=== PATIENT | male | born 1985 | race Two or more races ===

== ENCOUNTER 2021-03-06 14:56 | Emergency (ER) | payer SELFPAY ==
[~2021-03-06] VITALS: Ht 177.8 cm; Wt 82.0 kg
[2021-03-06 15:21] LABS: BASOPHILS % (AUTO) 1 % (0-1); EOSINOPHILS % (AUTO) 1 % (1-7); LYMPHOCYTES % (AUTO) 16 % (22-44); MEAN CORPUSCULAR HEMOGLOBIN 31.7 pg (27.5-34.5); MEAN CORPUSCULAR HGB CONC 34.4 g/dL (33.2-36.2); MEAN PLATELET VOLUME 7.5 fL (7.4-10.4); MONOCYTES % (AUTO) 7 % (2-9); NEUTROPHILS % (AUTO) 76 % (42-75); PLATELET COUNT 252 x10^3/uL (130-400); RED BLOOD COUNT 4.87 x10^6/uL (4.38-5.82); RED CELL DISTRIBUTION WIDTH 13.2 % (9.4-14.8)
[2021-03-06] MEDS ORDERED: KETOROLAC 30 MG/1 ML ONE (15:27)
--- NOTE | 2021-03-06 15:29 | NUR ---
PATIENT WALKED BACK FROM LOBBY WITH CHIEF C/O RIGHT SIDED ABD PAIN THAT STARTED THIS MORNING. DENIES PAIN WITH URINATION, DENIES N/V/D, NO FEVER. AMERICAN, VSS, FRIEND IN ROOM TO TRANSLATE. CALL LIGHT WITHIN REACH.
[2021-03-06] MEDS ORDERED: KETOROLAC 30 MG/1 ML IM ONE (15:30)
[2021-03-06 15:32] LABS: ALBUMIN 3.9 g/dL (3.4-5.0); ANION GAP 9 mmol/L (5-15); CALCIUM 8.4 mg/dL (8.5-10.1); CHLORIDE 100 mmol/L (98-107)
[2021-03-06 15:33] LABS: CREATININE 1.07 mg/dL (0.7-1.3); MD NO
--- NOTE | 2021-03-06 15:38 | NUR ---
PATIENT MEDICATED PER [facility], TO IMAGING.
--- NOTE | 2021-03-06 16:15 | NUR ---
URINE COLLECTED AND WALKED TO LAB.
--- NOTE | 2021-03-06 16:15 | NUR ---
ERMD AT BEDSIDE TO DISCUSS POC.
[2021-03-06 16:33] LABS: MICROSCOPIC NOT IND
[2021-03-06 16:43] VITALS: BP 136/73
--- NOTE | 2021-03-06 16:59 | NUR ---
Patient given discharge instructions and prescription and they have confirmed that they understand the instructions. Patient stable and ambulatory with steady gait from ED to private vehicle with family.
== END 2021-03-06 17:00 | disposition home or self-care (01) ==
LOC: ED 16:50
DX: N13.2 Hydronephrosis with renal and ureteral calculous obstruction (principal); R10.31 Right lower quadrant pain; R19.7 Diarrhea, unspecified
CPT/HCPCS: 36415; 74176; 80048; 81003; 82040; 85025; 96372; 99284; J1885